=== PATIENT | female | born 1935 | race Caucasian/White ===

== ENCOUNTER 2025-01-09 11:44 | Emergency (ER) | payer MEDICARE, OTHER ==
[~2025-01-09] VITALS: Ht 162.6 cm; Wt 68.0 kg
[2025-01-09 12:47] LABS: BASOPHILS ABSOLUTE AUTO 0.04 K/mm3 (0.00-0.23); BASOPHILS PERCENT AUTO 1 % (0-2); EOSINOPHILS ABSOLUTE AUTO 0.25 K/mm3 (0.00-0.68); EOSINOPHILS PERCENT AUTO 4 % (0-6); Hematocrit 36.3 % (33.0-51.0); Hemoglobin 11.8 g/dL (11.5-16.0); IMMATURE GRAN ABSOLUTE AUTO 0.01 K/mm3 (0.00-0.10); IMMATURE GRAN PERCENT AUTO 0 % (0-1); LYMPHOCYTES ABSOLUTE AUTO 1.74 K/mm3 (0.84-5.20); LYMPHOCYTES PERCENT AUTO 26 % (21-46); MONOCYTES ABSOLUTE AUTO 0.49 K/mm3 (0.16-1.47); MONOCYTES PERCENT AUTO 7 % (4-13); Mean Corpuscular HGB Conc 32.5 g/dL (31.5-36.5); Mean Corpuscular Volume 91 fL (80-100); NEUTROPHILS ABSOLUTE AUTO 4.08 K/mm3 (1.96-9.15); NEUTROPHILS PERCENT AUTO 62 % (41-73); NRBC ABSOLUTE 0.00 K/mm3 (0.00-0.02); NRBC Auto 0.0 /100 WBC (0.0-0.2); Platelet Count 219 K/mm3 (150-400); RDW Coefficient Variation 13.5 % (11.7-14.2); RDW Standard Deviation 45.1 fL (35.1-46.3)
[2025-01-09 13:14] LABS: Alanine Aminotransfer (ALT/SGP 14.0 U/L (12-78); Albumin, Blood 3.5 g/dL (3.4-5.0); Albumin/Globulin Ratio 0.9 (0.8-1.8); Anion Gap 9.0 mmol/L (3-11); Aspartate Aminotrans (AST/SGOT 19.0 U/L (12-37); Bilirubin, Total 0.4 mg/dL (0.1-1.0); Blood Urea Nitrogen 30.0 mg/dL (8-24); CO2, Blood 24.0 mmol/L (21-32); Calcium, Blood 9.4 mg/dL (8.5-10.1); Chloride, Blood 109.0 mmol/L (98-108); Creatinine, Blood 1.0 mg/dL (0.40-1.00); Globulin, Blood 3.8 g/dL (2.2-4.0); Glucose, Blood 159.0 mg/dL (70-99); Potassium, Blood 4.3 mmol/L (3.5-5.5); Sodium, Blood 138.0 mmol/L (136-145); Total Protein, Blood 7.3 g/dL (6.4-8.2)
[2025-01-09] MEDS ORDERED: Methyl Salicylate/Menth/Camph 57 GM TUBE TOP ONE (14:05)
[2025-01-09 14:19] LABS: Source, Urine Clean Catch
[2025-01-09 14:21] LABS: Bilirubin, Urine Neg (Neg); Glucose Qualitative, Urine Neg (Neg); Ketones, Urine Neg (Neg); Leukocyte Esterase, Urine Neg (Neg); Protein, Urine Neg (Neg); Specific Gravity, Urine 1.015 (1.003-1.022); Urobilinogen, Urine NORM (Normal)
[2025-01-09 14:27] LABS: Color, Urine Pale Yellow (P-Yellow)
[2025-01-09 14:28] LABS: White Blood Cells, Urine 0-2 /hpf (0-5)
[2025-01-09] MEDS ORDERED: Voltaren100 GM TOP (14:34)
== END 2025-01-09 15:08 | disposition home or self-care (01) ==
LOC: ER 11:44
PROVIDERS: Emergency Medicine
DX: M54.6 Pain in thoracic spine (principal); K80.20 Calculus of gallbladder without cholecystitis without obstruction; Z88.5 Allergy status to narcotic agent
CPT/HCPCS: 51701; 71045; 74177; 80053; 81001; 83690; 84484; 85025; 93005; 93010; 99284-25; A9270; Q9967

== ENCOUNTER 2025-01-19 21:53 | Emergency (ER) | payer MEDICARE, OTHER ==
[~2025-01-19] VITALS: Ht 157.5 cm; Wt 68.0 kg
[~2025-01-19 21:53] MED LIST: Voltaren100 GM TOP
[2025-01-19 22:29] LABS: BASOPHILS ABSOLUTE AUTO 0.05 K/mm3 (0.00-0.23); BASOPHILS PERCENT AUTO 0 % (0-2); EOSINOPHILS ABSOLUTE AUTO 0.04 K/mm3 (0.00-0.68); EOSINOPHILS PERCENT AUTO 0 % (0-6); Hematocrit 39.9 % (33.0-51.0); Hemoglobin 13.7 g/dL (11.5-16.0); IMMATURE GRAN ABSOLUTE AUTO 0.06 K/mm3 (0.00-0.10); IMMATURE GRAN PERCENT AUTO 1 % (0-1); LYMPHOCYTES ABSOLUTE AUTO 1.46 K/mm3 (0.84-5.20); LYMPHOCYTES PERCENT AUTO 11 % (21-46); MONOCYTES ABSOLUTE AUTO 0.51 K/mm3 (0.16-1.47); MONOCYTES PERCENT AUTO 4 % (4-13); Mean Corpuscular HGB Conc 34.3 g/dL (31.5-36.5); Mean Corpuscular Volume 86 fL (80-100); NEUTROPHILS ABSOLUTE AUTO 11.18 K/mm3 (1.96-9.15); NEUTROPHILS PERCENT AUTO 84 % (41-73); NRBC ABSOLUTE 0.00 K/mm3 (0.00-0.02); NRBC Auto 0.0 /100 WBC (0.0-0.2); Platelet Count 283 K/mm3 (150-400); RDW Coefficient Variation 13.5 % (11.7-14.2); RDW Standard Deviation 42.2 fL (35.1-46.3)
[2025-01-19 22:46] LABS: Alanine Aminotransfer (ALT/SGP 14.0 U/L (12-78); Albumin, Blood 4.0 g/dL (3.4-5.0); Albumin/Globulin Ratio 1.0 (0.8-1.8); Anion Gap 12.0 mmol/L (3-11); Aspartate Aminotrans (AST/SGOT 20.0 U/L (12-37); Bilirubin, Total 0.6 mg/dL (0.1-1.0); Blood Urea Nitrogen 19.0 mg/dL (8-24); CO2, Blood 28.0 mmol/L (21-32); Calcium, Blood 10.3 mg/dL (8.5-10.1); Chloride, Blood 102.0 mmol/L (98-108); Creatinine, Blood 0.82 mg/dL (0.40-1.00); Globulin, Blood 4.1 g/dL (2.2-4.0); Glucose, Blood 250.0 mg/dL (70-99); Potassium, Blood 3.9 mmol/L (3.5-5.5); Sodium, Blood 138.0 mmol/L (136-145); Total Protein, Blood 8.1 g/dL (6.4-8.2)
[2025-01-19] MEDS ORDERED: Ondansetron HCl 2 MG / ML 2ML Vial IV ONE (22:55)
[2025-01-19] MEDS ORDERED: NS 500 ML IV SCH (22:55)
[2025-01-20] MEDS ORDERED: RX Prepack 2 Tabs Ondansetron ODT 4MG UD ONE ×2 (00:45→03:00)
[2025-01-20] MEDS ORDERED: Acetaminophen650 M1 PO (16:04)
[2025-01-20] MEDS ORDERED: AMLO10 PO (16:04)
[2025-01-20] MEDS ORDERED: CARV3.125 PO (16:05)
[2025-01-20] MEDS ORDERED: ATOR40TA PO (16:05)
[2025-01-20] MEDS ORDERED: BISA10S PR (16:05)
[2025-01-20] MEDS ORDERED: LOSA50 PO (16:06)
[2025-01-20] MEDS ORDERED: FERSU300 PO (16:06)
[2025-01-20] MEDS ORDERED: POTA10T PO (16:06)
[2025-01-20] MEDS ORDERED: FURO20 PO (16:06)
[2025-01-20] MEDS ORDERED: MELA3 PO (16:07)
[2025-01-20] MEDS ORDERED: [UNRECOGNIZED DRUG - OTHER] PO (16:07)
[2025-01-20] MEDS ORDERED: DULCOLAX400 MG/5 M PO (16:08)
[2025-01-20] MEDS ORDERED: ONDA4 PO (16:08)
[2025-01-20] MEDS ORDERED: MIRALAX17 GM PO (16:08)
[2025-01-20] MEDS ORDERED: SIME80CH PO (16:09)
[2025-01-20] MEDS ORDERED: SENNA LAXATIVE8.6 MG PO (16:09)
[2025-01-20] MEDS ORDERED: Calcium Carbon500 MG PO (16:09)
== END 2025-01-20 03:04 | disposition home or self-care (01) ==
LOC: ER 21:53
PROVIDERS: Emergency Medicine
DX: R11.2 Nausea with vomiting, unspecified (principal); R10.9 Unspecified abdominal pain; K44.9 Diaphragmatic hernia without obstruction or gangrene; Z88.5 Allergy status to narcotic agent
CPT/HCPCS: 71046; 74177; 80053; 83690; 84484; 85025; 93005; 93010; 96361; 96374; 99285-25; A9270; J2405; J7030; Q9967